=== PATIENT | female | born 1990 | race Hispanic/Latino ===

== ENCOUNTER 2017-07-01 20:58 | Emergency (ER) | payer OTHER | END 2017-07-01 21:10 | disposition short-term general hospital (02) | LOC: ER 20:58 | DX: H92.09 Otalgia, unspecified ear (principal) ==

== ENCOUNTER 2017-07-01 21:21 | Emergency (ER) | payer OTHER ==
[~2017-07-01] VITALS: Ht 162.6 cm; Wt 94.8 kg
[2017-07-01] MEDS ORDERED: DEXAMETHASONE SOD PHOS 10 MG/1 ML VIAL INJ ONE (21:45)
[2017-07-01] MEDS ORDERED: ONDANSETRON HCL 4 MG ORAL DISINTEGRATING TAB PO ONE (21:45)
[2017-07-01] MEDS ORDERED: HYDROCODONE/APAP 5MG-325MG TAB PO ONE (21:45)
[2017-07-01 22:02] VITALS: BP 133/70
== END 2017-07-01 22:10 | disposition home or self-care (01) ==
LOC: FSED 21:21
DX: H65.03 Acute serous otitis media, bilateral (principal); J01.10 Acute frontal sinusitis, unspecified; J01.00 Acute maxillary sinusitis, unspecified
CPT/HCPCS: 81025; 99283